=== PATIENT | female | born 1995 | race Caucasian/White ===

== ENCOUNTER 2019-12-03 07:44 | Emergency (ER) | payer BC ==
[~2019-12-03] VITALS: Ht 162.6 cm; Wt 61.2 kg
[2019-12-03] MEDS ORDERED: [UNRECOGNIZED DRUG - CODE] PO (09:14)
[2019-12-03 09:23] LABS: ABSOLUTE BASOPHILS 0.1 thou/uL (0.0-0.2); ABSOLUTE EOSINOPHILS 0.1 thou/uL (0.0-0.7); ABSOLUTE LYMPHOCYTES 1.7 thou/uL (0.8-5.3); ABSOLUTE MONOCYTES 0.4 thou/uL (0.0-1.2); ABSOLUTE NEUTROPHILS 3.2 thou/uL (1.6-8.1); EOSINOPHILS 1.5 %; HEMATOCRIT 45.2 % (37.0-47.0); HEMOGLOBIN 15.3 gm/dL (12.0-15.0); LYMPHOCYTES 30.6 %; MCH 29.1 pg (26.0-34.0); MCHC 33.8 g/dL (28.0-37.0); MCV 86.1 fL (80.0-100.0); MONOCYTES 8.1 %; MPV 7.3 fl. (7.2-11.1); NUCLEATED RBCS 0 /100WBC; PLATELET COUNT* 285 thou/uL (150-400); POLYS 58.8 %; RBC 5.24 mil/uL (4.20-5.00); RDW-CV 13.7 % (10.5-14.5); WBC 5.4 thou/uL (4.0-11.0)
[2019-12-03 09:39] LABS: CALCIUM 9.5 mg/dL (8.5-10.1); POTASSIUM 3.8 mmol/L (3.5-5.1)
[2019-12-03 09:56] LABS: ALBUMIN 4.5 g/dL (3.4-5.0); TOTAL BILIRUBIN 0.4 mg/dL (<0.1-1.0); TOTAL PROTEIN 7.9 g/dL (6.4-8.2)
[2019-12-03 10:00] VITALS: BP 133/68
== END 2019-12-03 10:00 | disposition home or self-care (01) ==
LOC: M.ERS 07:44
PROVIDERS: Emergency Medicine Emergency Medical Services
DX: Z22.7 Latent tuberculosis (principal)